=== PATIENT | female | born 1935 | race Two or more races ===

== ENCOUNTER 2020-08-06 13:54 | Outpatient (CLI) | payer MEDICARE, MEDICAID ==
[~2020-08-06 13:54] MED LIST: ACET1TAB12 PO; ASCO1TAB PO; ASPI-1265 PO; CALC-793 PO; ESOM40CA49 PO; FERR1TAB9 PO; FOLI0.4T2 PO; LEVO125T PO; LISI-600 PO; MULT-1179 PO; VIT-9
== END 2020-08-06 23:59 | disposition home or self-care (01) ==
LOC: CARD DIAG 13:54
PROVIDERS: ATTEND Internal Medicine Cardiovascular Disease
DX: Z09 Encounter for follow-up examination after completed treatment for conditions other than malignant neoplasm (principal); Z95.2 Presence of prosthetic heart valve; I34.0 Nonrheumatic mitral (valve) insufficiency; I10 Essential (primary) hypertension
CPT/HCPCS: 93005; 93306

== ENCOUNTER 2021-11-26 12:44 | Emergency (ER) | payer BC, MEDICAID ==
[~2021-11-26] VITALS: Ht 152.4 cm; Wt 68.0 kg
[~2021-11-26 12:44] MED LIST changes: -FOLI0.4T2 PO; +FOLI0.4T6 PO; -LISI-600 PO; +LISI20TA28 PO
[2021-11-26 13:42] LABS: BASOPHILS % (AUTO) 0.4 % (0-1); EOSINOPHILS % (AUTO) 0 % (0-6); HEMATOCRIT 34.1 % (35.0-45.0); HEMOGLOBIN 11.6 g/dl (12.0-16.0); LYMPHOCYTES # (AUTO) 0.6 X10'3 (1.1-4.8); LYMPHOCYTES % (AUTO) 14.2 % (21-51); MEAN CORPUSCULAR HEMOGLOBIN 31.2 PG (27.0-31.0); MEAN CORPUSCULAR VOLUME 91.6 FL (78-98); MEAN PLATELET VOLUME 7.5 FL (7.4-10.4); MONOCYTES # (AUTO) 0.3 X10'3 (0-0.9); MONOCYTES % (AUTO) 7.4 % (2-12); NEUTROPHILS # (AUTO) 3.3 X10'3 (1.8-7.7); PLATELET COUNT 152 X10'3 (140-440); RED BLOOD COUNT 3.73 X10'6 (4.20-5.60); RED CELL DISTRIBUTION WIDTH 14.3 % (11.5-14.5); WHITE BLOOD COUNT 4.3 X10'3 (4.5-11.0)
[2021-11-26 14:03] LABS: ALANINE AMINOTRANSFERASE 12 U/L (12-78); ALBUMIN 3.6 G/DL (3.4-5.0); ALBUMIN/GLOBULIN RATIO 1.2 (1.1-1.5); ALKALINE PHOSPHATASE 108 IU/L (46-116); ANION GAP 9 (8-16); ASPARTATE AMINO TRANSFERASE 21 U/L (10-37); BILIRUBIN,TOTAL 0.5 MG/DL (0.1-1.0); BLOOD UREA NITROGEN 12 MG/DL (7-18); BUN/CREATININE RATIO 15.2 (6.6-38.0); CALCIUM 9.3 MG/DL (8.5-10.1); CHLORIDE 98 MMOL/L (99-107); CREATININE 0.79 MG/DL (0.40-0.90); GLUCOSE 108 MG/DL (70-104); POTASSIUM 3.9 MMOL/L (3.5-5.1); SODIUM 131 MMOL/L (135-145); TOTAL CARBON DIOXIDE 24.2 MMOL/L (24-32); TOTAL PROTEIN 6.6 G/DL (6.4-8.2); eGFR 69 ML/MIN
[2021-11-26 15:06] VITALS: BP 149/69
== END 2021-11-26 15:07 | disposition home or self-care (01) ==
LOC: ER 12:44
DX: I10 Essential (primary) hypertension (principal); R42 Dizziness and giddiness; Z86.2 Personal history of diseases of the blood and blood-forming organs and certain disorders involving the immune mechanism; Z98.890 Other specified postprocedural states; Z79.82 Long term (current) use of aspirin; Z79.899 Other long term (current) drug therapy
CPT/HCPCS: 36415; 71045; 80053; 83880; 84484; 85025; 93005; 99285

== ENCOUNTER 2021-12-23 03:18 | Emergency (ER) | payer BC, MEDICAID ==
[~2021-12-23] VITALS: Ht 160 cm; Wt 76.4 kg
[2021-12-23] MEDS ORDERED: meclizine 12.5mg tablet PO ONE (06:45)
[2021-12-23] MEDS ORDERED: ringers solution, lacted 1,000 ML IV ONE (06:45)
[2021-12-23 07:33] LABS: BASOPHILS % (AUTO) 0.7 % (0-1); EOSINOPHILS % (AUTO) 0.1 % (0-6); HEMATOCRIT 33.1 % (35.0-45.0); HEMOGLOBIN 11.4 g/dl (12.0-16.0); LYMPHOCYTES # (AUTO) 0.6 X10'3 (1.1-4.8); LYMPHOCYTES % (AUTO) 14.5 % (21-51); MEAN CORPUSCULAR HEMOGLOBIN 31.3 PG (27.0-31.0); MEAN CORPUSCULAR HGB CONC 34.4 g/dL (33.0-36.5); MEAN CORPUSCULAR VOLUME 91.1 FL (78-98); MONOCYTES # (AUTO) 0.4 X10'3 (0-0.9); MONOCYTES % (AUTO) 8.5 % (2-12); NEUTROPHILS # (AUTO) 3.2 X10'3 (1.8-7.7); NEUTROPHILS % (AUTO) 76.2 % (42-75); PLATELET COUNT 159 X10'3 (140-440); RED BLOOD COUNT 3.64 X10'6 (4.20-5.60); WHITE BLOOD COUNT 4.2 X10'3 (4.5-11.0)
[2021-12-23 07:47] LABS: ALANINE AMINOTRANSFERASE 14 U/L (12-78); ALBUMIN 3.5 G/DL (3.4-5.0); ALBUMIN/GLOBULIN RATIO 1.2 (1.1-1.5); ALKALINE PHOSPHATASE 120 IU/L (46-116); ANION GAP 6 (8-16); ASPARTATE AMINO TRANSFERASE 22 U/L (10-37); BILIRUBIN,TOTAL 0.4 MG/DL (0.1-1.0); BLOOD UREA NITROGEN 13 MG/DL (7-18); BUN/CREATININE RATIO 14.3 (6.6-38.0); CALCIUM 9.2 MG/DL (8.5-10.1); CHLORIDE 102 MMOL/L (99-107); CREATININE 0.91 MG/DL (0.40-0.90); GLUCOSE 107 MG/DL (70-104); POTASSIUM 3.6 MMOL/L (3.5-5.1); SODIUM 134 MMOL/L (135-145); TOTAL CARBON DIOXIDE 25.8 MMOL/L (24-32); TOTAL PROTEIN 6.5 G/DL (6.4-8.2); eGFR 59 ML/MIN
[2021-12-23 07:52] LABS: LIPASE < 50 U/L (73-393)
[2021-12-23 09:00] VITALS: BP 151/78
[2021-12-23 09:20] LABS: CLARITY,URINE CLEAR (Clear); COLOR,URINE YELLOW (Yellow); GLUCOSE, URINE NEGATIVE (Neg); KETONES,URINE NEGATIVE (Neg); LEUKOCYTE ESTERASE ,URINE NEGATIVE (Neg); NITRITES, URINE NEGATIVE (Neg); OCCULT BLOOD,URINE SMALL (Neg); PH,URINE 6.5 (4.8-8.0); PROTEIN,URINE NEGATIVE (Neg); UROBILINOGEN,URINE 0.2 E.U/dL (0.2-1.0)
[2021-12-23 09:39] LABS: UA COLLECTION TYPE STRAIGHT CATH
[2021-12-23 09:40] LABS: BACTERIA,URINE NONE SEEN /HPF (Neg); MUCUS STRANDS FEW /LPF (Neg); SQUAMOUS EPITHELIAL CELL,UR FEW /LPF (FEW); WBC,URINE NONE SEEN /HPF (0-4)
--- NOTE | 2021-12-23 10:45 | NUR ---
Pt and md do resident urgent care given and understands d/c instructions. Ambulatory with a walker. IV d/c'd, catheter was intact.
== END 2021-12-23 10:45 | disposition home or self-care (01) ==
LOC: ER 03:19
DX: I51.7 Cardiomegaly (principal); K59.00 Constipation, unspecified; R33.9 Retention of urine, unspecified; R42 Dizziness and giddiness; I10 Essential (primary) hypertension; Z86.2 Personal history of diseases of the blood and blood-forming organs and certain disorders involving the immune mechanism; Z79.82 Long term (current) use of aspirin; Z79.899 Other long term (current) drug therapy
CPT/HCPCS: 36415; 71045; 80053; 81001; 83690; 84484; 85025; 93005; 96360; 99285; J7120; J8597

== ENCOUNTER 2024-08-23 17:41 | Inpatient (IN) | payer BC, MEDICAID ==
[~2024-08-23] VITALS: Ht 147.3 cm; Wt 72.0 kg
[~2024-08-23 17:41] MED LIST changes: -ACET1TAB12 PO; +AMLO2.5T2 PO; -ASCO1TAB PO; +ATOR10TA PO; -CALC-793 PO; +CHOL500050 PO; +CYAN1TAB41 PO; -ESOM40CA49 PO; +FAMO-128 PO; +FLUT16SP2 BOTHNARES; -FOLI0.4T6 PO; +IPRA3AMP31 IH; +NITR0.4T51 SL; +SODI650T29 PO; -VIT-9
[2024-08-23 18:09] LABS: BASOPHILS % (AUTO) 0.3 % (0-1); EOSINOPHILS % (AUTO) 0 % (0-6); HEMATOCRIT 34.4 % (35.0-45.0); HEMOGLOBIN 11.6 g/dl (12.0-16.0); LYMPHOCYTES # (AUTO) 0.7 X10'3 (1.1-4.8); MEAN CORPUSCULAR HEMOGLOBIN 30.4 PG (27.0-31.0); MEAN CORPUSCULAR HGB CONC 33.7 g/dL (33.0-36.5); MEAN CORPUSCULAR VOLUME 90.2 FL (78-98); MEAN PLATELET VOLUME 7.5 FL (7.4-10.4); MONOCYTES # (AUTO) 0.3 X10'3 (0-0.9); MONOCYTES % (AUTO) 5.3 % (2-12); NEUTROPHILS # (AUTO) 4.5 X10'3 (1.8-7.7); NEUTROPHILS % (AUTO) 81.4 % (42-75); PLATELET COUNT 179 X10'3 (140-440); RED BLOOD COUNT 3.81 X10'6 (4.20-5.60); RED CELL DISTRIBUTION WIDTH 14.7 % (11.5-14.5); WHITE BLOOD COUNT 5.6 X10'3 (4.5-11.0)
[2024-08-23 18:32] LABS: ALANINE AMINOTRANSFERASE 11 U/L (12-78); ALKALINE PHOSPHATASE 91 IU/L (46-116); ANION GAP 10 (8-16); ASPARTATE AMINO TRANSFERASE 17 U/L (10-37); BILIRUBIN,TOTAL 0.5 MG/DL (0.1-1.0); BLOOD UREA NITROGEN 16 MG/DL (7-18); BUN/CREATININE RATIO 10.4 (10.0-20.0); CALCIUM 8.5 MG/DL (8.5-10.1); CHLORIDE 101 MMOL/L (99-107); CREATININE 1.54 MG/DL (0.40-0.90); GLUCOSE 143 MG/DL (70-104); POTASSIUM 4.3 MMOL/L (3.5-5.1); SODIUM 133 MMOL/L (135-145); TOTAL CARBON DIOXIDE 21.7 MMOL/L (24-32); TOTAL PROTEIN 6.1 G/DL (6.4-8.2); eCRCL 17 ML/MIN; eGFR 32 ML/MIN
[2024-08-23 18:40] LABS: PRO BRAIN NATRIURETIC PEPTIDE 2342 PG/ML (0-450)
[2024-08-23] MEDS: normal saline 1000ML IV soln IVB ONE (20:41)
[2024-08-23] MEDS: normal saline 1000ml 1,000 ML IV ONE (22:19)
[2024-08-24] VITALS (9 sets, daily range): BP systolic 113–198; BP diastolic 42–115; PULSE 78–123; RESP 14–23; TEMP 96.9–98.9; O2SAT 93–100
[2024-08-24] MEDS: ringers solution, lacted 1,000 ML IV SCH (00:37)
[2024-08-24] MEDS ORDERED: magnesium sulf-water 2g/50mL 50 ML IV PRN (01:50)
[2024-08-24] MEDS ORDERED: potassium Cl 40MEQ/1/2NS 520ml 520 ML IV PRN (01:50)
[2024-08-24] MEDS ORDERED: magnesium Cl slow-release 64mg tablet PO PRN (01:50)
[2024-08-24] MEDS ORDERED: potassium Cl 20 mEq SR tablet PO PRN ×2 (01:50)
[2024-08-24] MEDS ORDERED: magnesium sulf-water 4G/100mL 100 ML IV PRN (01:50)
[2024-08-24] MEDS: loperamide 2mg capsule PO ONE (05:23)
[2024-08-24] MEDS: levoTHYROXINE 75mcg tablet PO SCH (07:07)
[2024-08-24] MEDS: K and/or MAG REPLACEMENT MC SCH (08:00)
[2024-08-24] MEDS: heparin, porcine 5000 units/ml vial SQ SCH (08:36)
[2024-08-24] MEDS: pantoprazole 40 MG vial IV SCH (08:37)
[2024-08-24] MEDS ORDERED: ipratropium/albuterol 3ml nebule IH PRN (15:50)
[2024-08-24] MEDS ORDERED: nitroGLYCERIN 0.4mg SUBLingual tab SL PRN (15:50)
[2024-08-24 15:56] LABS: BILIRUBIN,URINE NEGATIVE (Neg); CLARITY,URINE CLEAR (Clear); COLOR,URINE YELLOW (Yellow); GLUCOSE, URINE NEGATIVE (Neg); KETONES,URINE NEGATIVE (Neg); LEUKOCYTE ESTERASE ,URINE NEGATIVE (Neg); NITRITES, URINE NEGATIVE (Neg); OCCULT BLOOD,URINE TRACE-INTACT (Neg); PH,URINE 5.5 (4.8-8.0); PROTEIN,URINE NEGATIVE (Neg); UROBILINOGEN,URINE 0.2 E.U/dL (0.2-1.0)
[2024-08-24 16:01] LABS: UA COLLECTION TYPE CLN CATCH MIDSTREAM
[2024-08-24 16:07] LABS: WBC,URINE 0-4 /HPF (0-4)
[2024-08-24 16:08] LABS: AMORPHOUS URATES 1+; BACTERIA,URINE FEW /HPF (Neg); SQUAMOUS EPITHELIAL CELL,UR FEW /LPF (FEW); TRANSITIONAL EPI CELLS,URINE FEW /HPF
[2024-08-24] MEDS: amLODIPine 2.5mg tablet PO SCH (19:53)
[2024-08-25 05:26] LABS: BASOPHILS % (AUTO) 0.5 % (0-1); EOSINOPHILS % (AUTO) 0.2 % (0-6); HEMATOCRIT 31.2 % (35.0-45.0); HEMOGLOBIN 10.8 g/dl (12.0-16.0); LYMPHOCYTES # (AUTO) 0.8 X10'3 (1.1-4.8); LYMPHOCYTES % (AUTO) 18.1 % (21-51); MEAN CORPUSCULAR HEMOGLOBIN 30.9 PG (27.0-31.0); MEAN CORPUSCULAR HGB CONC 34.7 g/dL (33.0-36.5); MEAN PLATELET VOLUME 7.5 FL (7.4-10.4); MONOCYTES # (AUTO) 0.4 X10'3 (0-0.9); MONOCYTES % (AUTO) 8.8 % (2-12); NEUTROPHILS # (AUTO) 3.1 X10'3 (1.8-7.7); NEUTROPHILS % (AUTO) 72.4 % (42-75); PLATELET COUNT 154 X10'3 (140-440); RED BLOOD COUNT 3.51 X10'6 (4.20-5.60); RED CELL DISTRIBUTION WIDTH 14.3 % (11.5-14.5); WHITE BLOOD COUNT 4.3 X10'3 (4.5-11.0)
[2024-08-25 06:00] VITALS: BP 160/79; PULSE 99; RESP 16; TEMP 98.1; O2SAT 97
[2024-08-25 06:03] LABS: ALANINE AMINOTRANSFERASE 14 U/L (12-78); ALBUMIN 2.8 G/DL (3.4-5.0); ALBUMIN/GLOBULIN RATIO 0.9 (1.1-1.5); ALKALINE PHOSPHATASE 83 IU/L (46-116); ANION GAP 7 (8-16); ASPARTATE AMINO TRANSFERASE 22 U/L (10-37); BILIRUBIN,TOTAL 0.6 MG/DL (0.1-1.0); BLOOD UREA NITROGEN 12 MG/DL (7-18); BUN/CREATININE RATIO 16.4 (10.0-20.0); CALCIUM 9.1 MG/DL (8.5-10.1); CHLORIDE 103 MMOL/L (99-107); CREATININE 0.73 MG/DL (0.40-0.90); GLUCOSE 96 MG/DL (70-104); MAGNESIUM 1.8 MG/DL (1.5-2.4); POTASSIUM 3.9 MMOL/L (3.5-5.1); SODIUM 133 MMOL/L (135-145); THYROID STIMULATING HORMONE 0.03 ulU/ml (0.34-4.50); TOTAL CARBON DIOXIDE 23.4 MMOL/L (24-32); TOTAL PROTEIN 5.8 G/DL (6.4-8.2); eCRCL 35 ML/MIN; eGFR 75 ML/MIN
[2024-08-25 08:00] VITALS: BP 160/79; PULSE 99
[2024-08-25] MEDS ORDERED: levoTHYROXINE 125mcg tablet PO SCH (08:00)
[2024-08-25] MEDS: IRON PO SCH (08:00)
[2024-08-25] MEDS ORDERED: CYANOCOBALAMIN PO SCH (08:00)
[2024-08-25] MEDS ORDERED: FOLIC ACID PO SCH (08:00)
[2024-08-25] MEDS: DOCUSATE SODIUM PO SCH (08:00)
[2024-08-25] MEDS: [UNRECOGNIZED DRUG - OTHER] PO SCH (08:00)
[2024-08-25] MEDS: multivitamins, therapeutics tablet PO SCH (09:14)
[2024-08-25] MEDS: cholecalciferol (vitamin D3) 1,000 unit (25mcg) tablet PO SCH (09:14)
[2024-08-25] MEDS: atorvastatin 10mg tablet PO SCH (09:15)
[2024-08-25] MEDS: levoTHYROXINE 125mcg tablet PO SCH (09:15)
[2024-08-25] MEDS: aspirin 81mg tab.chew PO SCH (09:15)
[2024-08-25] MEDS: fluticasone nasal spray 16GM bottle NS PRN (09:16)
[2024-08-25 10:00] VITALS: BP 168/86; PULSE 105; RESP 20; TEMP 97.6; O2SAT 99
[2024-08-25 11:14] VITALS: PULSE 91; RESP 16; O2SAT 96
[2024-08-25] MEDS ORDERED: LACT1CAP26 PO (11:31)
== END 2024-08-25 16:40 | disposition home health service (06) | DRG 391 ==
LOC: ER 17:42 → ED HOLD 23:21 → ORTHO 4S 08-24 01:50
PROVIDERS: ADMIT Surgery; ATTEND Internal Medicine
DX: A05.9 Bacterial foodborne intoxication, unspecified (principal); N17.0 Acute kidney failure with tubular necrosis; E87.1 Hypo-osmolality and hyponatremia; Z66 Do not resuscitate; D64.9 Anemia, unspecified; E86.0 Dehydration; I12.9 Hypertensive chronic kidney disease with stage 1 through stage 4 chronic kidney disease, or unspecified chronic kidney disease; N18.2 Chronic kidney disease, stage 2 (mild); I95.9 Hypotension, unspecified; J44.89 Other specified chronic obstructive pulmonary disease; E03.9 Hypothyroidism, unspecified; Z79.82 Long term (current) use of aspirin; Z79.899 Other long term (current) drug therapy; J44.9 Chronic obstructive pulmonary disease, unspecified; I10 Essential (primary) hypertension; R55 Syncope and collapse
CPT/HCPCS: 36415; 71045; 80053; 81001; 83605; 83735; 83880; 84100; 84145; 84443; 84484; 85025; 87040; 87081; 93005; 93306; 94760; 97161; 97530; 97535; 99285; G0378; J1644; J2470; J7030; J7040; J7120

== ENCOUNTER 2024-09-18 19:11 | Inpatient (IN) | payer BC, MEDICAID ==
[~2024-09-18] VITALS: Ht 165.1 cm; Wt 78.0 kg
[~2024-09-18 19:11] MED LIST changes: +LACT1CAP26 PO
[2024-09-18 20:16] LABS: BASOPHILS % (AUTO) 0.2 % (0-1); EOSINOPHILS % (AUTO) 0 % (0-6); HEMOGLOBIN 11.7 g/dl (12.0-16.0); LYMPHOCYTES # (AUTO) 0.6 X10'3 (1.1-4.8); LYMPHOCYTES % (AUTO) 6.8 % (21-51); MEAN CORPUSCULAR HEMOGLOBIN 30.8 PG (27.0-31.0); MEAN CORPUSCULAR HGB CONC 34.3 g/dL (33.0-36.5); MEAN CORPUSCULAR VOLUME 89.8 FL (78-98); MEAN PLATELET VOLUME 7.5 FL (7.4-10.4); MONOCYTES # (AUTO) 0.6 X10'3 (0-0.9); MONOCYTES % (AUTO) 7.4 % (2-12); NEUTROPHILS # (AUTO) 7.3 X10'3 (1.8-7.7); NEUTROPHILS % (AUTO) 85.6 % (42-75); PLATELET COUNT 176 X10'3 (140-440); RED BLOOD COUNT 3.79 X10'6 (4.20-5.60); WHITE BLOOD COUNT 8.6 X10'3 (4.5-11.0)
[2024-09-18 20:35] LABS: ALANINE AMINOTRANSFERASE 15 U/L (12-78); ALBUMIN 3.4 G/DL (3.4-5.0); ALBUMIN/GLOBULIN RATIO 1.1 (1.1-1.5); ALKALINE PHOSPHATASE 111 IU/L (46-116); ANION GAP 11 (8-16); ASPARTATE AMINO TRANSFERASE 19 U/L (10-37); BILIRUBIN,TOTAL 0.5 MG/DL (0.1-1.0); BLOOD UREA NITROGEN 13 MG/DL (7-18); BUN/CREATININE RATIO 12.5 (10.0-20.0); CALCIUM 9.1 MG/DL (8.5-10.1); CHLORIDE 99 MMOL/L (99-107); CREATININE 1.04 MG/DL (0.40-0.90); GLUCOSE 141 MG/DL (70-104); LIPASE 18 U/L (16-77); SODIUM 132 MMOL/L (135-145); TOTAL CARBON DIOXIDE 22.3 MMOL/L (24-32); TOTAL PROTEIN 6.6 G/DL (6.4-8.2); eCRCL 34 ML/MIN; eGFR 50 ML/MIN
[2024-09-18] MEDS: normal saline 1000ml 1,000 ML IV ONE (23:53)
[2024-09-19 00:01] LABS: PRO BRAIN NATRIURETIC PEPTIDE 1078 PG/ML (0-450)
[2024-09-19] MEDS ORDERED: LIOT5TAB10 PO (03:21)
[2024-09-19] MEDS ORDERED: LANS30CA56 PO (03:24)
[2024-09-19] MEDS ORDERED: GABA-530 PO (03:25)
[2024-09-19] MEDS ORDERED: potassium Cl 40MEQ/1/2NS 520ml 520 ML IV PRN (03:30)
[2024-09-19] MEDS ORDERED: potassium Cl 20 mEq SR tablet PO PRN (03:30)
[2024-09-19] MEDS ORDERED: magnesium sulf-water 4G/100mL 100 ML IV PRN (03:30)
[2024-09-19] MEDS ORDERED: mag hydrox/Alum hydrox/simeth 30ml oral suspension PO PRN (03:30)
[2024-09-19] MEDS ORDERED: acetaminophen 325mg tablet PO PRN (03:30)
[2024-09-19] MEDS ORDERED: magnesium sulf-water 2g/50mL 50 ML IV PRN (03:30)
[2024-09-19] MEDS ORDERED: magnesium hydroxide 30ml (MOM) UD suspension PO PRN (03:30)
[2024-09-19] MEDS ORDERED: ondansetron/PF 4mg/2ml inj IV PRN (03:30)
[2024-09-19] MEDS ORDERED: magnesium Cl slow-release 64mg tablet PO PRN (03:30)
[2024-09-19 04:03] LABS: % IRON SATURATION 24 % (11-46); IRON 45 UG/DL (49-151); TOTAL IRON BINDING CAPACITY 185 UG/DL (259-388)
[2024-09-19] MEDS: normal saline 1000ml 1,000 ML IV SCH (04:06)
[2024-09-19 04:16] LABS: FERRITIN 497 NG/ML (8-252)
[2024-09-19] MEDS: K and/or MAG REPLACEMENT MC SCH (08:00)
[2024-09-19] MEDS: docusate sod 100mg capsule PO SCH (08:00)
[2024-09-19] MEDS: heparin, porcine 5000 units/ml vial SQ SCH (08:38)
[2024-09-19 09:00] VITALS: BP 134/70; RESP 16; TEMP 97.5; O2SAT 98
[2024-09-19 12:54] LABS: C DIFF SPECIMEN=DIARRHEA? ACCEPTABLE; C DIFFICILE TOXINS A&B NEGATIVE (Neg)
[2024-09-19 12:55] LABS: C DIFF ANTIGEN NEGATIVE (NEGATIVE)
[2024-09-19 13:00] VITALS: BP 132/84; PULSE 82; RESP 14; TEMP 98.2; O2SAT 97
[2024-09-19 17:31] VITALS: RESP 18; O2SAT 97
[2024-09-19 18:00] VITALS: BP 174/67; PULSE 98; RESP 16; TEMP 99.3; O2SAT 99
[2024-09-19 20:20] VITALS: RESP 16
[2024-09-19 22:00] VITALS: BP 112/65; PULSE 72; RESP 20; TEMP 98.2; O2SAT 93
[2024-09-20 05:35] LABS: BASOPHILS % (AUTO) 0.4 % (0-1); EOSINOPHILS % (AUTO) 0.1 % (0-6); HEMATOCRIT 33.7 % (35.0-45.0); HEMOGLOBIN 11.6 g/dl (12.0-16.0); LYMPHOCYTES % (AUTO) 27.3 % (21-51); MEAN CORPUSCULAR HEMOGLOBIN 31.1 PG (27.0-31.0); MEAN CORPUSCULAR HGB CONC 34.3 g/dL (33.0-36.5); MEAN CORPUSCULAR VOLUME 90.4 FL (78-98); MEAN PLATELET VOLUME 7.4 FL (7.4-10.4); MONOCYTES # (AUTO) 0.3 X10'3 (0-0.9); NEUTROPHILS # (AUTO) 2.4 X10'3 (1.8-7.7); NEUTROPHILS % (AUTO) 64.2 % (42-75); PLATELET COUNT 153 X10'3 (140-440); RED BLOOD COUNT 3.73 X10'6 (4.20-5.60); WHITE BLOOD COUNT 3.7 X10'3 (4.5-11.0)
[2024-09-20 06:00] VITALS: BP 193/79; PULSE 87; RESP 22; TEMP 97.8; O2SAT 97
[2024-09-20 06:04] LABS: ALANINE AMINOTRANSFERASE 15 U/L (12-78); ALBUMIN 3.1 G/DL (3.4-5.0); ALKALINE PHOSPHATASE 94 IU/L (46-116); ANION GAP 9 (8-16); ASPARTATE AMINO TRANSFERASE 23 U/L (10-37); BILIRUBIN,TOTAL 0.6 MG/DL (0.1-1.0); BLOOD UREA NITROGEN 7 MG/DL (7-18); BUN/CREATININE RATIO 10.8 (10.0-20.0); CALCIUM 9.2 MG/DL (8.5-10.1); CHLORIDE 106 MMOL/L (99-107); CREATININE 0.65 MG/DL (0.40-0.90); GLUCOSE 95 MG/DL (70-104); POTASSIUM 3.9 MMOL/L (3.5-5.1); SODIUM 138 MMOL/L (135-145); TOTAL CARBON DIOXIDE 23.2 MMOL/L (24-32); TOTAL PROTEIN 6.3 G/DL (6.4-8.2); eCRCL 55 ML/MIN; eGFR 86 ML/MIN
[2024-09-20] MEDS: hydrALAZINE 20mg/ml inj. IV ONE (09:59)
[2024-09-20 10:00] VITALS: BP 147/61; PULSE 102; RESP 17; TEMP 98.3; O2SAT 100
[2024-09-20] MEDS: amLODIPine 5mg tablet PO ONE (10:52)
[2024-09-20] MEDS: hydrALAZINE 20mg/ml inj. IV SCH (14:41)
[2024-09-20 18:00] VITALS: BP 145/86; PULSE 110; RESP 20; TEMP 97.6; O2SAT 99
[2024-09-20 20:40] VITALS: RESP 18
[2024-09-20 22:00] VITALS: BP 149/69; PULSE 100; RESP 16; TEMP 97.5; O2SAT 100
[2024-09-21 04:54] LABS: BASOPHILS % (AUTO) 0.5 % (0-1); EOSINOPHILS % (AUTO) 0.1 % (0-6); HEMATOCRIT 34.2 % (35.0-45.0); HEMOGLOBIN 11.8 g/dl (12.0-16.0); LYMPHOCYTES # (AUTO) 1.5 X10'3 (1.1-4.8); LYMPHOCYTES % (AUTO) 24.3 % (21-51); MEAN CORPUSCULAR HGB CONC 34.5 g/dL (33.0-36.5); MEAN CORPUSCULAR VOLUME 89.9 FL (78-98); MEAN PLATELET VOLUME 7.1 FL (7.4-10.4); MONOCYTES # (AUTO) 0.5 X10'3 (0-0.9); MONOCYTES % (AUTO) 7.7 % (2-12); NEUTROPHILS # (AUTO) 4.2 X10'3 (1.8-7.7); NEUTROPHILS % (AUTO) 67.4 % (42-75); PLATELET COUNT 183 X10'3 (140-440); RED BLOOD COUNT 3.81 X10'6 (4.20-5.60); RED CELL DISTRIBUTION WIDTH 14.8 % (11.5-14.5); WHITE BLOOD COUNT 6.3 X10'3 (4.5-11.0)
[2024-09-21 05:23] LABS: ALANINE AMINOTRANSFERASE 12 U/L (12-78); ALBUMIN/GLOBULIN RATIO 0.9 (1.1-1.5); ALKALINE PHOSPHATASE 93 IU/L (46-116); ANION GAP 13 (8-16); ASPARTATE AMINO TRANSFERASE 23 U/L (10-37); BILIRUBIN,TOTAL 0.6 MG/DL (0.1-1.0); BLOOD UREA NITROGEN 8 MG/DL (7-18); BUN/CREATININE RATIO 13.8 (10.0-20.0); CALCIUM 9.4 MG/DL (8.5-10.1); CHLORIDE 105 MMOL/L (99-107); CREATININE 0.58 MG/DL (0.40-0.90); GLUCOSE 99 MG/DL (70-104); POTASSIUM 3.3 MMOL/L (3.5-5.1); SODIUM 138 MMOL/L (135-145); TOTAL CARBON DIOXIDE 19.8 MMOL/L (24-32); TOTAL PROTEIN 6.2 G/DL (6.4-8.2); eCRCL 61 ML/MIN; eGFR > 90 ML/MIN
[2024-09-21 05:25] LABS: MAGNESIUM 1.7 MG/DL (1.5-2.4)
[2024-09-21 06:00] VITALS: BP 140/70; PULSE 100; RESP 14; TEMP 97.6; O2SAT 99
[2024-09-21] MEDS ORDERED: NOR5T PO (07:55)
[2024-09-21] MEDS: amLODIPine 5mg tablet PO SCH (09:41)
[2024-09-21] MEDS: potassium Cl 20 mEq SR tablet PO PRN (09:42)
[2024-09-21 10:00] VITALS: BP 147/64; PULSE 97; RESP 16; TEMP 97.5; O2SAT 97
== END 2024-09-21 14:10 | disposition home health service (06) | DRG 640 ==
LOC: ER 19:12 → ED HOLD 09-19 02:23 → SUR 3N 09-19 17:17
PROVIDERS: ADMIT Internal Medicine Critical Care Medicine; ATTEND Family Medicine
PROC: BW251ZZ Computerized Tomography (CT Scan) of Chest, Abdomen and Pelvis using Low Osmolar Contrast (ICD-10-PCS; principal; 2024-09-19)
DX: E86.0 Dehydration (principal); N17.0 Acute kidney failure with tubular necrosis; E87.1 Hypo-osmolality and hyponatremia; J44.9 Chronic obstructive pulmonary disease, unspecified; E03.9 Hypothyroidism, unspecified; Z66 Do not resuscitate; I12.9 Hypertensive chronic kidney disease with stage 1 through stage 4 chronic kidney disease, or unspecified chronic kidney disease; N18.2 Chronic kidney disease, stage 2 (mild); K21.9 Gastro-esophageal reflux disease without esophagitis; D63.8 Anemia in other chronic diseases classified elsewhere; Z79.82 Long term (current) use of aspirin; Z79.899 Other long term (current) drug therapy
CPT/HCPCS: 36415; 71250; 74176; 80053; 82728; 83540; 83550; 83690; 83735; 83880; 84484; 85025; 87045; 87046; 87081; 87324; 87449; 97110; 97161; 97530; 99285; G0378; J0360; J1644; J7030